=== PATIENT | male | born 1975 | race African-American/Black ===

== ENCOUNTER 2016-12-19 19:26 | Emergency (ER) | payer SELFPAY ==
[~2016-12-19] VITALS: Ht 182.9 cm; Wt 79.4 kg
--- NOTE | 2016-12-19 19:38 | ED Upper Extremity ---
General Chief Complaint: Foreign Body Stated Complaint: RT HAND 2ND FINGER LACERATION/GLASS IN WOUND Nursing Triage Note: C/O GLASS IN R 2ND FINGER SINCE YESTERDAY Nursing Sepsis Screen: No Definite Risk Source: patient Exam Limitations: no limitations History of Present Illness Time seen by provider: 19:37 Initial Comments To ER with suspicion of a piece of glass remaining in the laceration and the tip of his right pointer finger. This occurred yesterday while he was sweeping up glass off of the floor and felt something puncture his hand. His tetanus is up-to-date within the past 5 years. Onset: just prior to arrival Severity: moderate Pain/Injury Location: right 2nd finger Method of Injury: unknown Allergies and Home Medications Allergies Coded Allergies: No Known Drug Allergies (Unverified , 01/07/16) Constitutional: see HPI EENTM: see HPI Respiratory: no symptoms reported Cardiovascular: no symptoms reported Genitourinary: no symptoms reported Musculoskeletal: see HPI Skin: no symptoms reported Psychiatric/Neurological: No Symptoms Reported Past Xxvxccc-Vfesqo-Vpvnzc Hx Patient Social History Alcohol Use: Denies Use Recreational Drug Use: No Type Used: Cigarettes Recent Foreign Travel: No Contact w/Someone Who Travel: No Recent Infectious Disease Expo: No Recent Hopitalizations: No Physical Abuse: No Sexual Abuse: No Seasonal Allergies Seasonal Allergies: No Surgeries History of Surgeries: Yes (colonoscopy) Respiratory History of Respiratory Disorde: No Cardiovascular History of Cardiac Disorders: No Neurological History of Neurological Disord: No Reproductive System Hx Reproductive Disorders: No Gastrointestinal History of Gastrointestinal Di: Yes Gastrointestinal Disorders: Pancreatitis Musculoskeletal History of Musculoskeletal Dis: No Endocrine History of Endocrine Disorders: No Psychosocial History of Psychiatric Problem: No Suicide Risk Score: 0 Integumentary History of Skin or Integumenta: No Blood Transfusions History of Blood Disorders: No Adverse Reaction to a Blood Tr: No Physical Exam Vital Signs Vital Sign - Last 12Hours 12/19/16 19:32 Temp 98.7 Pulse 100 Resp 18 B/P (MAP) 100/66 Pulse Ox 99 Capillary Refill : Less Than 3 Seconds General Appearance: WD/WN, no apparent distress HEENT: PERRL/EOMI, normal ENT inspection Neck: non-tender, full range of motion Respiratory: no respiratory distress, no accessory muscle use Gastrointestinal: normal bowel sounds, non tender Shoulder: normal inspection, non-tender Elbow/Forearm: normal inspection, non-tender Wrist: Yes normal inspection, Yes non-tender Hand: Right, laceration (small 3 mm laceration to the very tip of the right pointer finger with minimal active oozing of blood on the finger is squeezed. No foreign bodies seen upon inspection so we will numb it up and look a bit closer.) Neurologic/Psychiatric: alert, normal mood/affect, oriented x 3 Skin: normal color, warm/dry Progress/Results/Core Measures Results/Orders My Orders Orders - SONYA WALLACE APRN Lidocaine 2% Injection 20 Ml (Xylocaine (12/19/16 19:45) Cephalexin Capsule (Keflex Capsule) (12/19/16 19:45) Hydrocodone/Apap 5/325 Tablet (Lortab 5 (12/19/16 19:45) Finger(S) (12/19/16 19:35) Vital Signs/I&O Vital Sign - Last 12Hours 12/19/16 19:32 Temp 98.7 Pulse 100 Resp 18 B/P (MAP) 100/66 Pulse Ox 99 Blood Pressure Mean: 77 Departure Communication (Admissions) Progress Notes I did anesthetize the tip of the pointer finger where there is the laceration. I then probed this with the parents sterile forceps and I am unable to feel any foreign bodies were visualized any. We will treat prophylactically with Keflex and hydrocodone and leave the wound open. Impression Impression: Primary Impression: fingertip wound Disposition: 01 HOME, SELF-CARE Condition: Stable Departure-Patient Inst. Decision time for Depature: 19:57 Referrals: NO,LOCAL PHYSICIAN (PCP/Family) Primary Care Physician Patient Instructions: NO INSTRUCTIONS GIVEN Add. Discharge Instructions: 1. Antibiotics as directed 2. Return to ER for any concerns 3. All discharge instructions reviewed with patient and/or family. Voiced understanding. Scripts Hydrocodone/Acetaminophen ([place] 5-325 Tablet) 1 Each Tablet 1 EACH PO Q4H Y for PAIN-SEVERE, #5 TAB Prov: SONYA WALLACE APRN 12/19/16 Cephalexin (Keflex) 500 Mg Capsule 500 MG PO TID, #15 CAP Prov: SONYA WALLACE APRN 12/19/16 SONYA WALLACE APRN Dec 19, 2016 19:38
[2016-12-19] MEDS ORDERED: HYDROcodone/APAP 5 MG/325 MG (LORTAB) TAB PO ONE (19:45)
[2016-12-19] MEDS ORDERED: CEPHALEXIN 250 MG (KEFLEX) CAP PO ONE (19:45)
[2016-12-19] MEDS ORDERED: LIDOCAINE 2% 20 ML (XYLOCAINE) VIAL INJ ONE (19:45)
[2016-12-19] MEDS ORDERED: CEPH-507 PO (20:01)
[2016-12-19] MEDS ORDERED: HYDR-757 PO (20:01)
[2016-12-19 20:05] VITALS: BP 100/66
--- NOTE | 2016-12-19 20:22 | Diagnostic Imaging Report ---
INDICATION: Injury. Pain. COMPARISON: None FINDINGS: 3 views of the right index finger/hand are obtained. No acute fracture, malalignment or osseous destructive process is seen. No radiopaque foreign bodies are demonstrated. IMPRESSION: No acute abnormality is demonstrated. Dictated by: Dictated on workstation # [id number]
== END 2016-12-19 20:05 | disposition home or self-care (01) ==
LOC: EDUNIT# 19:26 → ER 19:28
DX: S60.450A Superficial foreign body of right index finger, initial encounter; W18.02XA Striking against glass with subsequent fall, initial encounter
CPT/HCPCS: 73140; 99283

== ENCOUNTER 2019-10-14 00:33 | Emergency (ER) | payer SELFPAY ==
[~2019-10-14] VITALS: Ht 182 cm; Wt 84.8 kg
[~2019-10-14 00:33] MED LIST: CEPH-507 PO; HYDR-4226 PO
[2019-10-14] MEDS ORDERED: RX-NAPROXEN (NAPROSYN) 250 MG TAB PPK#4 PO STA (01:48)
[2019-10-14] MEDS ORDERED: NAPR500T8 PO (01:51)
[2019-10-14] MEDS ORDERED: AMOX-358 PO (01:51)
[2019-10-14] MEDS ORDERED: LIDO20SO23 MM (01:52)
--- NOTE | 2019-10-14 01:52 | ED EENT ---
History of Present Illness General Chief Complaint: Dental Problems/Pain Stated Complaint: MOUTH INFECTION Nursing Triage Note: Patient ambulatory to ER room 8 with complaint of pain to the roof of his mouth. Patient states he began with the pain yesterday and now has a lesion present on the roof of his mouth. Patient appears very sleepy and stumbling with walking. He states he is tired from taking Benadryl this evening. Patient is able to answer all questions appropriately but does fall asleep easily. Source: patient (VERY POOR HISTORIAN--SPEECH SLURRED AND NON-SENSICAL AT TIMES, APPEARS TO BE UNDER THE INFLUENCE OF SOME SUBSTANCE/S), old records (ALL PMH IS FROM OLD RECORD, PT IS UNABLE TO GIVE ANY RELIABLE INFORMATION AT THIS TIME) History of Present Illness Date Seen by Provider: Oct 14, 2019 Time Seen by Provider: 01:40 Initial Comments C/O PAIN TO MOUTH FOR THE PAST COUPLE OF DAYS DENIES ANY INJURY TO AREA, AND NO PRIOR SIMILAR PROBLEMS NO FEVER DOES NOT HAVE A DENTIST OR PCP PT STATES HE SAW "SOMEONE" A COUPLE OF DAYS AGO AND WAS GIVEN AN UNKNOWN ANTIBIOTIC--DENIES TO ME THAT HE WAS GIVEN ANY PAIN MEDICATION DENIES THAT HE HAS TAKEN ANY MEDICATION OR DRUGS OR ANY ALCOHOL TODAY, TO ME HAS GIVEN DIFFERENT INFORMATION TO NURSE--REPORTED KEFLEX AND HYDROCODONE RX'S RECENTLY. PT CANNOT STATE WHERE OR WHEN HE WAS SEEN OR BY WHOM, OR IF HE HAS A FOLLOW UP APPOINTMENT WITH ANYONE Allergies and Home Medications Allergies Coded Allergies: No Known Drug Allergies (Unverified , 01/07/16) Home Medications Amoxicillin/Potassium Clav 1 Each Tablet, 1 EACH PO BID Prescribed by: FALLON BAUGH on 10/14/19150 Cephalexin 500 Mg Capsule, 500 MG PO TID Prescribed by: SONYA WALLACE on 12/19/162000 Hydrocodone/Acetaminophen 1 Each Tablet, 1 EACH PO Q4H PRN for PAIN-SEVERE Prescribed by: SONYA WALLACE on 12/19/162000 Lidocaine HCl 15 Ml Solution, 1-2 ML MM [id number] Prescribed by: FALLON BAUGH on 10/14/19151 Naproxen 500 Mg Tablet.dr, 500 MG PO BID Prescribed by: FALLON BAUGH on 10/14/19150 Patient Home Medication List Home Medication List Reviewed: Yes Review of Systems Review of Systems Constitutional: No fever Mouth: see HPI Neurological: See HPI Past Igturkf-Fmhoqk-Qayamz Hx Past Med/Social Hx: Reviewed and Corrections made Patient Social History Alcohol Use: Regular Use Alcohol Beverage of Choice: Beer Recreational Drug Use: Yes Drug of Choice: marijuana Smoking Status: Current Everyday Smoker Type Used: Cigars 2nd Hand Smoke Exposure: Yes Recent Foreign Travel: No Contact w/Someone Who Travel: No Recent Infectious Disease Expo: No Recent Hopitalizations: No Physical Abuse: No Sexual Abuse: No Mistreated: No Fear: No Immunizations Up To Date PED Vaccines UTD: Yes Seasonal Allergies Seasonal Allergies: No Past Medical History Surgeries: Yes (colonoscopy, back surgery) Orthopedic Respiratory: No Cardiac: No Neurological: No Reproductive Disorders: No Gastrointestinal: Yes Pancreatitis Musculoskeletal: No Endocrine: No HEENT: No Cancer: No Psychosocial: Yes Depression Integumentary: No Blood Disorders: No Adverse Reaction/Blood Tranf: No Physical Exam Vital Signs Vital Signs - First Documented 10/14/19 00:40 Temp 36.2 Pulse 70 Resp 14 B/P (MAP) 117/88 (98) Pulse Ox 100 O2 Delivery Room Air Height, Weight, BMI Height: 6'0" Weight: 175lbs. oz. 79.675190fe; 25.00 BMI Method:Stated General Appearance: WD/WN, no apparent distress, other (SLEEPING VERY SOUNDLY, EASILY AWAKENS, BUT SPEECH IS SLURRED AND NON-SENSICAL AT TIMES, AND FALLS ASLEEP MID-SENTENCE. APPEARS TO BE UNDER THE INFLUENCE OF SOME SUBSTANCE/S. GAIT SOMEWHAT UNSTEADY ON ARRIVAL. ) Eyes: bilateral eye normal inspection Mouth/Throat: pharynx normal, other (ROOF OF MOUTH/HARD PALATE, BEHIND 2 FRONT TEETH WITH 1 CM TENDER, ERYTHEMATOUS, NODULE. NO POINTING. ADJACENT TEETH ARE GROSSLY NORMAL. ) Neck: non-tender, full range of motion, supple, normal inspection; No lymphadenopathy (R), No lymphadenopathy (L) Cardiovascular: regular rate, rhythm, no murmur Respiratory: normal breath sounds Neurologic/Psychiatric: no motor/sensory deficits, other (MENTATION ABOVE) Skin: normal color (PT IS BLACK) Progress/Results/Core Measures Results/Orders My Orders Orders - FALLON BAUGH DO Rx-Naproxen (Rx-Naprosyn) (10/14/19 01:48) Amoxicillin/Clavulanate Tablet (Augmenti (10/14/19 02:00) Lidocaine 2% Viscous 15 Ml (Xylocaine Vi (10/14/19 02:00) Medications Given in ED Current Medications Medications Dose Ordered Sig/Brooke Route Start Time Stop Time Status Last Admin Dose Admin Lidocaine HCl 5 ml ONCE ONCE MM 10/14/19 02:00 10/14/19 02:01 DC 10/14/19 01:58 5 ML Vital Signs/I&O 10/14/19 10/14/19 00:40 02:02 Temp 36.2 36.2 Pulse 70 65 Resp 14 14 B/P (MAP) 117/88 (98) 101/67 (98) Pulse Ox 100 100 O2 Delivery Room Air Room Air Blood Pressure Mean: 98 Departure Impression Primary Impression: Dental abscess Disposition: HOME, SELF-CARE Condition: Stable Departure-Patient Inst. Referrals: NO,LOCAL PHYSICIAN (PCP/Family) Primary Care Physician Patient Instructions: Tooth Abscess (DC) Add. Discharge Instructions: FREQUENT SALT WATER SWISHES FOLLOW UP WITH DENTIST THIS WEEK FOR FURTHER CARE All discharge instructions reviewed with patient and/or family. Voiced understanding. Scripts Lidocaine HCl (Lidocaine HCl Viscous) 15 Ml Solution 1-2 ML MM [id number], #120 ML Prov: FALLON BAUGH DO 10/14/19 Naproxen (Naproxen) 500 Mg Tablet.dr 500 MG PO BID, #20 TAB Prov: FALLON BAUGH DO 10/14/19 Amoxicillin/Potassium Clav (Augmentin 875-125 Tablet) 1 Each Tablet 1 EACH PO BID for 10 Days, #20 TAB Prov: FALLON BAUGH DO 10/14/19 FALLON BAUGH DO Oct 14, 2019 01:52
[2019-10-14] MEDS ORDERED: LIDOCAINE 2% VISCOUS 15 ML UDC MM ONE (02:00)
[2019-10-14] MEDS ORDERED: AUGMENTIN 875 MG TAB (AMOXICILLIN/CLAVULANATE) PO SCH (02:00)
[2019-10-14 02:02] VITALS: BP 101/67
== END 2019-10-14 02:11 | disposition home or self-care (01) ==
LOC: EDUNIT# 00:33 → ER 00:35
DX: K04.7 Periapical abscess without sinus (principal); F17.290 Nicotine dependence, other tobacco product, uncomplicated
CPT/HCPCS: 99283

== ENCOUNTER 2020-04-26 13:03 | Emergency (ER) | payer SELFPAY ==
[~2020-04-26] VITALS: Ht 182.8 cm; Wt 90.7 kg
[~2020-04-26 13:03] MED LIST changes: +AMOX-358 PO; +LIDO20SO23 MM; +NAPR500T8 PO
[2020-04-26 13:20] VITALS: BP 126/84
[2020-04-26] MEDS ORDERED: ORPHENADRINE 60 MG/2 ML (NORFLEX) AMP (ED ONLY) IM ONE (13:30)
[2020-04-26] MEDS ORDERED: KETOROLAC 60 MG/2 ML VIAL IM ONE (13:30)
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
[2020-04-26] MEDS ORDERED: METH-313 PO (13:51)
[2020-04-26] MEDS ORDERED: NAPR-1071 PO (13:51)
[2020-04-26] MEDS ORDERED: HYDROcodone/APAP 5 MG/325 MG (LORTAB) TAB PO ONE (14:45)
== END 2020-04-26 14:45 | disposition home or self-care (01) ==
LOC: EDUNIT# 13:03 → ER 13:05
DX: M54.6 Pain in thoracic spine (principal); Z77.22 Contact with and (suspected) exposure to environmental tobacco smoke (acute) (chronic)
CPT/HCPCS: 99284

== ENCOUNTER 2020-07-07 09:21 | Emergency (ER) | payer SELFPAY ==
[~2020-07-07] VITALS: Ht 182 cm; Wt 86.0 kg
[~2020-07-07 09:21] MED LIST changes: +METH-313 PO; +NAPR-1071 PO
--- NOTE | 2020-07-07 09:59 | ED GI ---
General Chief Complaint: Rect Problems Stated Complaint: RECTAL BLEEDING Nursing Triage Note: PT CO OF RECTAL BLEEDING THIS AM W NORMAL BM, PT STATES HAS SOME ABD CRAMPING, PT TEARFUL, STATES SEVERAL YEARS AGO HAD BLEEDING AND POLYPS REMOVED. STATES HAS NEVER HAD ANY PROBLEMS SINCE Sepsis Screen: No Definite Risk Source of Information: Patient Exam Limitations: No Limitations (KRISTINA BONNER MED STUDENT) History of Present Illness Date Seen by Provider: Jul 07, 2020 Time Seen by Provider: 09:30 Initial Comments Pt is a 44yo male who presents to the ED by private conveyance complaining of rectal bleeding. He states he had a normal BM this morning and noticed blood in the toilet after. He also reports some cramping pain in his lower abdomen that he rates as 6/10 in severity. He states that this happened 7-8 years ago and he ended up needing a colonoscopy and had polyps removed at that time. He has not had a colonoscopy since then. He denies any family history of cancer. He is very anxious about what could have caused this and states he has a baby on the way. Denies any rectal trauma. Also notes abdominal pressure with urination and states it feels like he has to strain to pee. Severity/Quality: Moderate, Cramping Location: RLQ, LLQ Radiation: No Radiation Activities at Onset: Other (Bowel movement) Modifying Factors: Improves With Defecating (KRISTINA BONNER,MED STUDENT) Allergies and Home Medications Allergies Coded Allergies: No Known Drug Allergies (Unverified , 01/07/16) Home Medications Amoxicillin/Potassium Clav 1 Each Tablet, 1 EACH PO BID Prescribed by: FALLON BAUGH on 10/14/19150 Cephalexin 500 Mg Capsule, 500 MG PO TID Prescribed by: SONYA WALLACE on 12/19/162000 Hydrocodone/Acetaminophen 1 Each Tablet, 1 EACH PO Q4H PRN for PAIN-SEVERE Prescribed by: SONYA WALLACE on 12/19/162000 Lidocaine HCl 15 Ml Solution, 1-2 ML MM [id number] Prescribed by: FALLON BAUGH on 10/14/19 015 Methocarbamol 750 Mg Tablet, 750 MG PO Q4H PRN for PAIN-MODERATE (5-7) Prescribed by: SONYA WALLACE on 04/26/20 1351 Naproxen 500 Mg Tablet.dr, 500 MG PO BID Prescribed by: FALLON BAUGH on 10/14/19 0151 Naproxen 500 Mg Tablet, 500 MG PO BID PRN for PAIN-MILD (1-4) Prescribed by: SONYA WALLACE on 04/26/20 1351 Patient Home Medication List Home Medication List Reviewed: Yes (LAYLA STEVENSON MD) Review of Systems Review of Systems Constitutional: no symptoms reported EENTM: No Symptoms Reported Respiratory: No Symptoms Reported Cardiovascular: No Symptoms Reported Gastrointestinal: Abdominal Pain; Denies Constipated, Denies Diarrhea; Rectal Bleeding Genitourinary: Other (straining) Musculoskeletal: no symptoms reported Skin: no symptoms reported Psychiatric/Neurological: Anxiety Endocrine: No Symptoms Reported Hematologic/Lymphatic: No Symptoms Reported (KRISTINA BONNER MED STUDENT) Past Hvmftgg-Tennbs-Sscxyd Hx Patient Social History Alcohol Use: Rarely Uses Number of Drinks Today: 0 Alcohol Beverage of Choice: Beer Drug of Choice: marijuana Smoking Status: Current Everyday Smoker Type Used: Cigars 2nd Hand Smoke Exposure: Yes Recent Infectious Disease Expo: No Recent Hopitalizations: No (KRISTINA BONNER MED STUDENT) Immunizations Up To Date Tetanus Booster (TDap): Unknown PED Vaccines UTD: Yes (KRISTINA BONNER MED STUDENT) Seasonal Allergies Seasonal Allergies: No (KRISTINA BONNER MED STUDENT) Past Medical History Surgeries: Yes (colonoscopy, back surgery) Orthopedic Respiratory: No Cardiac: No Neurological: No Reproductive Disorders: No Gastrointestinal: Yes Pancreatitis Musculoskeletal: No Endocrine: No HEENT: No Cancer: No Psychosocial: Yes Depression Integumentary: No Blood Disorders: No Adverse Reaction/Blood Tranf: No (KRISTINA BONNER MED STUDENT) Gastrointestinal Bleed, Polyps (LAYLA STEVENSON MD) Physical Exam Vital Signs Vital Signs - First Documented 07/07/20 09:25 Temp 36.6 Pulse 98 Resp 18 B/P (MAP) 126/103 (111) Pulse Ox 100 (LAYLA STEVENSON MD) Vital Signs Capillary Refill : Less Than 3 Seconds (KRISTINA BONNER MED STUDENT) Height/Weight/BMI Height: 6'0" Weight: 175lbs. oz. 79.501922se; 25.00 BMI Method:Stated General Appearance: WD/WN, other (anxious) HEENT: PERRL/EOMI Neck: full range of motion, supple Respiratory: chest non-tender, lungs clear, no respiratory distress, no accessory muscle use Cardiovascular: no murmur, tachycardia Peripheral Pulses: 2+ Radial Pulses (R), 2+ Radial Pulses (L) Gastrointestinal: normal bowel sounds, soft, tenderness (minimal tenderness in bilateral lower abdomen) Extremities: normal range of motion, non-tender, no pedal edema, no calf tenderness Neurologic/Psychiatric: no motor/sensory deficits, alert, oriented x 3, other (anxious) Skin: normal color, warm/dry (KRISTINA BONNER,MED STUDENT) Progress/Results/Core Measures Results/Orders Lab Results Laboratory Tests Test 07/07/20 10:25 07/07/20 10:40 Range/Units White Blood Count 5.2 4.3-11.0 10^3/uL Red Blood Count 4.53 4.30-5.52 10^6/uL Hemoglobin 14.2 13.3-17.7 g/dL Hematocrit 43 40-54 % Mean Corpuscular Volume 96 80-99 fL Mean Corpuscular Hemoglobin 31 25-34 pg Mean Corpuscular Hemoglobin Concent 33 32-36 g/dL Red Cell Distribution Width 12.3 10.0-14.5 % Platelet Count 244 130-400 10^3/uL Mean Platelet Volume 9.6 9.0-12.2 fL Immature Granulocyte % (Auto) 0 % Neutrophils (%) (Auto) 52 42-75 % Lymphocytes (%) (Auto) 34 12-44 % Monocytes (%) (Auto) 7 0-12 % Eosinophils (%) (Auto) 5 0-10 % Basophils (%) (Auto) 1 0-10 % Neutrophils # (Auto) 2.7 1.8-7.8 10^3/uL Lymphocytes # (Auto) 1.8 1.0-4.0 10^3/uL Monocytes # (Auto) 0.4 0.0-1.0 10^3/uL Eosinophils # (Auto) 0.3 0.0-0.3 10^3/uL Basophils # (Auto) 0.1 0.0-0.1 10^3/uL Immature Granulocyte # (Auto) 0.0 0.0-0.1 10^3/uL Prothrombin Time 12.4 12.2-14.7 SEC INR Comment 0.9 0.8-1.4 Activated Partial Thromboplast Time 31 24-35 SEC Sodium Level 139 135-145 MMOL/L Potassium Level 4.2 3.6-5.0 MMOL/L Chloride Level 103 98-107 MMOL/L Carbon Dioxide Level 28 21-32 MMOL/L Anion Gap 8 5-14 MMOL/L Blood Urea Nitrogen 8 7-18 MG/DL Creatinine 0.83 0.60-1.30 MG/DL Estimat Glomerular Filtration Rate > 60 BUN/Creatinine Ratio 10 Glucose Level 86 70-105 MG/DL Calcium Level 9.0 8.5-10.1 MG/DL Corrected Calcium 9.0 8.5-10.1 MG/DL Total Bilirubin 0.2 0.1-1.0 MG/DL Aspartate Amino Transf (AST/SGOT) 18 5-34 U/L Alanine Aminotransferase (ALT/SGPT) 18 0-55 U/L Alkaline Phosphatase 68 40-136 U/L Total Protein 7.3 6.4-8.2 GM/DL Albumin 4.0 3.2-4.5 GM/DL Urine Color YELLOW Urine Clarity CLEAR Urine pH 6.5 5-9 Urine Specific [place] 1.015 L 1.016-1.022 Urine Protein NEGATIVE NEGATIVE Urine Glucose (UA) NEGATIVE NEGATIVE Urine Ketones NEGATIVE NEGATIVE Urine Nitrite NEGATIVE NEGATIVE Urine Bilirubin NEGATIVE NEGATIVE Urine Urobilinogen 0.2 < = 1.0 MG/DL Urine Leukocyte Esterase NEGATIVE NEGATIVE Urine RBC (Auto) NEGATIVE NEGATIVE Urine RBC NONE /HPF Urine WBC NONE /HPF Urine Squamous Epithelial Cells 0-2 /HPF Urine Crystals NONE /LPF Urine Bacteria NEGATIVE /HPF Urine Casts NONE /LPF Urine Mucus NEGATIVE /LPF Urine Culture Indicated NO (LAYLA STEVENSON MD) My Orders Orders - LAYLA STEVENSON MD Cbc With Automated Diff (07/07/20 09:38) Comprehensive Metabolic Panel (07/07/20 09:38) Protime With Inr (07/07/20 09:38) Partial Thromboplastin Time (07/07/20 09:38) Ed Iv/Invasive Line Start (07/07/20 09:38) Fecal Occult Bedside (07/07/20 09:38) Ua Culture If Indicated (07/07/20 10:39) Iohexol Injection (Omnipaque 350 Mg/Ml 1 (07/07/20 11:30) Received Contrast (Hold Metformin- Contr (07/07/20 11:30) Ns (Ivpb) (Sodium Chloride 0.9% Ivpb Bag (07/07/20 11:30) (LAYLA STEVENSON MD) Vital Signs/I&O 07/07/20 07/07/20 09:25 11:28 Temp 36.6 Pulse 98 92 Resp 18 18 B/P (MAP) 126/103 (111) 122/88 Pulse Ox 100 100 (LAYLA STEVENSON MD) Blood Pressure Mean: 111 Progress Progress Note : Progress Note Patient was seen and examined by me. Labs were reviewed and were unremarkable. Rectal exam was performed. Patient experienced pelvic pain with the rectal exam. Hemoccult was positive. I discussed the situation with Dr. Beaulieu who advised CT scan and surgical follow-up for probable endoscopy. Plan was discussed with the patient. He declined the CT scan. I explained to him the importance of CT scan to rule out serious pathology prior to endoscopy. I explained that the surgeon on-call would desire the CT prior to performing any endoscopy. Despite this coverage they should call the the patient insists on leaving without further work-up and pursuit of outpatient consultation with a surgeon. He seems very stressed and is tearful. I contacted Dr. Beaulieu and updated him on the situation. (LAYLA STEVENSON MD) Departure Impression Primary Impression: Rectal bleeding Additional Impression: Pelvic pain Disposition: 01 HOME, SELF-CARE Condition: Stable Departure-Patient Inst. Decision time for Depature: 11:25 (LAYLA STEVENSON MD) Referrals: IMANI BEAULIEU DO NO,LOCAL PHYSICIAN (PCP) Primary Care Physician Patient Instructions: Bloody Stools, Adult (DC), Severe Abdominal Pain Add. Discharge Instructions: It is critical that you follow-up with Dr. Beaulieu or the surgeon of your choice as soon as possible. Please call today to make an appointment. Return to the emergency room if you have any worsening or new symptoms or if you change your mind about obtaining a CT scan. You may take Tylenol (acetaminophen) up to 1000 mg every 6 hours as needed for pain. It is not advised to take NSAID medications such as ibuprofen, aspirin, naproxen, etc. Call with questions or concerns. All discharge instructions reviewed with patient and/or family. Voiced unders tanding. Medical Student Attestation and Attending Note: I have personally interviewed and examined this patient along with Kristina Bonner, MS 4. I have reviewed student documentation including history, physical, and assessments. I agree with the documentation except where otherwise noted. Exam: General: Alert, oriented, distressed/tearful, well developed HEENT: Normocephalic and atraumatic Heart: Regular rate and rhythm without murmur Lungs: Clear to auscultation bilaterally with normal effort Abdomen: Soft, mild tenderness in the pelvic region, nondistended, normal bowel sounds Rectal: Some fecal debris around the anus. Anus appears normal. No masses identified. Hemoccult was positive. No archana bleeding noted. Patient reported pain in the pelvic region with digital exam. Neuropsych: Alert, oriented, no focal deficits, anxious, tearful Skin: Warm and dry without rashes (LAYLA STEVENSON MD) Copy Copies To 1: IMANI BEAULIEU HEATHER,MED STUDENT Jul 07, 2020 09:59 LAYLA STEVENSON MD Jul 07, 2020 11:26
[2020-07-07 10:39] LABS: BASOPHILS # (AUTO) 0.1 10^3/uL (0.0-0.1); BASOPHILS % (AUTO) 1 % (0-10); EOSINOPHILS # (AUTO) 0.3 10^3/uL (0.0-0.3); EOSINOPHILS % (AUTO) 5 % (0-10); HEMATOCRIT 43 % (40-54); HEMOGLOBIN 14.2 g/dL (13.3-17.7); LYMPHOCYTES # (AUTO) 1.8 10^3/uL (1.0-4.0); LYMPHOCYTES % (AUTO) 34 % (12-44); MEAN CORPUSCULAR HEMOGLOBIN 31 pg (25-34); MEAN CORPUSCULAR HGB CONC 33 g/dL (32-36); MEAN CORPUSCULAR VOLUME 96 fL (80-99); MEAN PLATELET VOLUME 9.6 fL (9.0-12.2); MONOCYTES # (AUTO) 0.4 10^3/uL (0.0-1.0); MONOCYTES % (AUTO) 7 % (0-12); NEUTROPHILS # (AUTO) 2.7 10^3/uL (1.8-7.8); NEUTROPHILS % (AUTO) 52 % (42-75); PLATELET COUNT 244 10^3/uL (130-400); WHITE BLOOD COUNT 5.2 10^3/uL (4.3-11.0)
[2020-07-07 10:47] LABS: BILIRUBIN,URINE NEGATIVE (NEGATIVE); CLARITY,URINE CLEAR; COLOR,URINE YELLOW; GLUCOSE, URINE (UA) NEGATIVE (NEGATIVE); KETONES,URINE NEGATIVE (NEGATIVE); LEUKOCYTE ESTERASE ,URINE NEGATIVE (NEGATIVE); NITRITE,URINE NEGATIVE (NEGATIVE); PH,URINE 6.5 (5-9); PROTEIN,URINE NEGATIVE (NEGATIVE)
[2020-07-07 10:53] LABS: CHLORIDE 103 MMOL/L (98-107); INR 0.9 (0.8-1.4); POTASSIUM 4.2 MMOL/L (3.6-5.0); PROTHROMBIN TIME PATIENT 12.4 SEC (12.2-14.7); SODIUM 139 MMOL/L (135-145)
[2020-07-07 10:55] LABS: BACTERIA,URINE NEGATIVE /HPF; SQUAMOUS EPITHELIAL CELL,UR 0-2 /HPF
[2020-07-07 10:56] LABS: GLUCOSE 86 MG/DL (70-105); TOTAL PROTEIN 7.3 GM/DL (6.4-8.2)
[2020-07-07 10:57] LABS: BILIRUBIN,TOTAL 0.2 MG/DL (0.1-1.0); CARBON DIOXIDE 28 MMOL/L (21-32)
[2020-07-07 10:59] LABS: ALKALINE PHOSPHATASE 68 U/L (40-136); CREATININE SERUM 0.83 MG/DL (0.60-1.30); GFR ESTIMATED > 60
[2020-07-07 11:00] LABS: BUN/CREATININE RATIO 10
[2020-07-07 11:02] LABS: ALANINE AMINOTRANSFERASE 18 U/L (0-55)
[2020-07-07 11:28] VITALS: BP 122/88
[2020-07-07] MEDS ORDERED: IOHEXOL 350 MG/ML 100 ML (OMNIPAQUE 350) VIAL IV ONE (11:30)
[2020-07-07] MEDS ORDERED: HOLD METFORMIN - RECEIVED CONTRAST 20 ML VIAL IV SCH (11:30)
[2020-07-07] MEDS ORDERED: NS 100 ML (IVPB) BAG IV ONE (11:30)
== END 2020-07-07 11:30 | disposition home or self-care (01) ==
LOC: EDUNIT# 09:21 → ER 09:23
DX: K62.5 Hemorrhage of anus and rectum (principal); R10.2 Pelvic and perineal pain; F17.290 Nicotine dependence, other tobacco product, uncomplicated
CPT/HCPCS: 36415; 80053; 81000; 82274; 85025; 85610; 85730

== ENCOUNTER 2020-10-25 06:55 | Emergency (ER) | payer SELFPAY ==
[~2020-10-25] VITALS: Ht 182.9 cm; Wt 88.5 kg
[2020-10-25 07:03] VITALS: BP 132/106
[2020-10-25] MEDS ORDERED: LIDOCAINE 1% INJ 20 ML 20 ML VIAL INJ ONE (07:30)
[2020-10-25] MEDS ORDERED: SULF1TAB38 PO (07:59)
--- NOTE | 2020-10-25 07:59 | ED Integumentary General ---
General Chief Complaint: Skin/Wound Problems Stated Complaint: L ARMIT INGROWN HAIR Nursing Triage Note: PT AMB TO RM 6 W C/O WHAT HE BELIEVES IS AN INGROWN HAIR SX LAST SUNDAY. PT HAS A RAISED AREA OF CONCERN ON HIS LEFT ARMPIT. PT REPORTS AREA IS PAINFUL TO TOUCH AND HAS BEEN GETTING BIGGER. Source: patient Exam Limitations: no limitations (LAYLA STEVENSON MD) History of Present Illness Date Seen by Provider: Oct 25, 2020 Time Seen by Provider: 07:30 Initial Comments Bismark Sage is a 44yo M with PMH of substance abuse who presents with CC of ingrown hair. He states that over the past week he has had an increasingly tender area of non-draining fluctuance in the L axila, which has caused him to take 3 days off from work. He describes tenderness with arm movement, but has normal ROM. He has never had this happen before, and denies fever, chills, or n/v/d. Timing/Duration: week Severity: moderate Location: torso (L axilla ) Possible Cause: no cause identified Modifying Factors: worse with other (movement) Associated Symptoms: denies symptoms (POPPY AMEZCUA,MED STUDENT) Allergies and Home Medications Allergies Coded Allergies: No Known Drug Allergies (Unverified , 01/07/16) Home Medications Amoxicillin/Potassium Clav 1 Each Tablet, 1 EACH PO BID Prescribed by: FALLON BAUGH on 10/14/19150 Cephalexin 500 Mg Capsule, 500 MG PO TID Prescribed by: SONYA WALLACE on 12/19/162000 Hydrocodone/Acetaminophen 1 Each Tablet, 1 EACH PO Q4H PRN for PAIN-SEVERE Prescribed by: SONYA WALLACE on 12/19/162000 Lidocaine HCl 15 Ml Solution, 1-2 ML MM [id number] Prescribed by: FALLON BAUGH on 10/14/19 015 Methocarbamol 750 Mg Tablet, 750 MG PO Q4H PRN for PAIN-MODERATE (5-7) Prescribed by: SONYA WALLACE on 04/26/201350 Naproxen 500 Mg Tablet.dr, 500 MG PO BID Prescribed by: FALLON BAUGH on 10/14/19150 Naproxen 500 Mg Tablet, 500 MG PO BID PRN for PAIN-MILD (1-4) Prescribed by: SONYA WALLACE on 2/8/21 1351 Sulfamethoxazole/Trimethoprim 1 Each Tablet, 1 EACH PO BID Prescribed by: LAYLA MEDRANO on 10/25/20 6702 Patient Home Medication List Home Medication List Reviewed: Yes (LAYLA STEVENSON MD) Review of Systems Review of Systems Constitutional: No chills, No fever EENTM: no symptoms reported Respiratory: no symptoms reported Cardiovascular: no symptoms reported Gastrointestinal: no symptoms reported Genitourinary: no symptoms reported Musculoskeletal: no symptoms reported Skin: see HPI Psychiatric/Neurological: No Symptoms Reported Endocrine: No Symptoms Reported Hematologic/Lymphatic: No Symptoms Reported (POPPY AMEZCUA,MED STUDENT) Past Yfzydgp-Fhaquz-Ahvjpp Hx Patient Social History Tobacco Use?: Yes Tobacco type used: Cigarettes Smoking Status: Current Someday Smoker Substance use?: No Additional substance use comme: FORMER METH USER Alcohol Use?: No Pt feels they are or have been: No (LAYLA STEVENSON MD) Immunizations Up To Date Tetanus Booster (TDap): Unknown PED Vaccines UTD: Yes (LAYLA STEVENSON MD) Seasonal Allergies Seasonal Allergies: No (LAYLA STEVENSON MD) Past Medical History Surgeries: Yes (colonoscopy, back surgery) Orthopedic Respiratory: No Cardiac: No Neurological: No Reproductive Disorders: No Gastrointestinal: Yes Gastrointestinal Bleed, Polyps Musculoskeletal: No Endocrine: No HEENT: No Cancer: No Psychosocial: Yes Depression Integumentary: No Blood Disorders: No Adverse Reaction/Blood Tranf: No (LAYLA STEVENSON MD) Physical Exam Vital Signs Vital Signs - First Documented 10/25/20 07:03 Temp 37.0 Pulse 104 Resp 18 B/P (MAP) 132/106 (115) Pulse Ox 99 O2 Delivery Room Air (POPPY AMEZCUA,MED STUDENT) Vital Signs Capillary Refill : Less Than 3 Seconds (LAYLA STEVENSON MD) General Appearance: WD/WN, no apparent distress HEENT: PERRL/EOMI, normal ENT inspection Neck: non-tender, full range of motion Cardiovascular: normal peripheral pulses, tachycardia Respiratory: normal breath sounds, no respiratory distress, no accessory muscle use Gastrointestinal: normal bowel sounds, non tender, soft; No distended, No hernia Back: normal inspection Extremities: normal range of motion, no calf tenderness Neurologic/Psychiatric: alert, normal mood/affect, oriented x 3 Skin: normal color, warm/dry Skin Problem Location: upper extremities (3cm area of erythematous fluctuance under L axilla) Skin Problem Character: abscess, erythema Lymphatic: no adenopathy (POPPY AMEZCUA,MED STUDENT) Procedures/Interventions I&D : Site: Left axilla Blade Size: 11 I & D Procedure: betadine prep, gauze wick placed Progress Site of incision was initially cleaned with isopropyl alcohol and 0.5mL of lidocaine was injected. Site was then cleaned further with chlorhexidine and a 1cm incision was made. Copious purulent material was expressed from the wound and culture was collected. A 30mL mixture of 5mL lidocaine and 25mL normal saline was used to irrigate the abscess with continued expression. A small amount of clumpy sebaceous material was expressed near the end of the procedure. A 1/4in wick was used to maintain patency of the incision; a 4x4 gauze was placed over the wound to end the procedure. (POPPY AMEZCUA,MED STUDENT) Progress/Results/Core Measures Results/Orders Vital Signs/I&O 10/25/20 07:03 Temp 37.0 Pulse 104 Resp 18 B/P (MAP) 132/106 (115) Pulse Ox 99 O2 Delivery Room Air (POPPY AMEZCUA,MED STUDENT) Blood Pressure Mean: 115 Departure Impression Primary Impression: Axillary abscess Additional Impression: Encounter for incision and drainage procedure Disposition: 01 HOME, SELF-CARE Condition: Improved Departure-Patient Inst. Decision time for Depature: 07:55 (LAYLA STEVENSON MD) Referrals: NO,LOCAL PHYSICIAN (PCP/Family) Primary Care Physician Patient Instructions: Abscess Incision and Drainage ED, SEBACEOUS CYST Add. Discharge Instructions: You may take ibuprofen up to 600 mg every 6 hours and/or Tylenol (acetaminophen) up to 1000 mg every 6 hours as needed for pain. Leave the packing wick in for 12 to 24 hours. This will help ensure the incision hole stays open for continued draining. When you remove the packing, you may gently express the area to alleviate more pus that may have developed. After removing the packing, use warm moist soaks in the bathtub with a few squirts of chlorhexidine soap or use warm moist cloth compresses. Continue this 3 or 4 times a day until you are sure the abscess is improving and there is no more drainage coming from the wound. Complete your antibiotics as prescribed. Do not skip any doses and complete the entire course of antibiotics. Return to care if you have worsening symptoms including fevers greater than 100 degrees. This abscess may have been caused by a sebaceous cyst. If you do have a persistent or returning knot under the skin in this area, consider following up with a general surgeon or your primary care provider to have the cyst excised. Untreated cyst may present a risk for recurrent infection and abscesses. You may return to the emergency room at any time during the healing of this abscess for a no charge wound check. It would be good to follow-up with your primary care provider in 3 or 4 days for repeat examination and review of wound culture results. At that time you may also discuss potential for referral to a surgeon if you seem to have a persistent sebaceous cyst after this abscess completely heals. Call with any questions or concerns. All discharge instructions reviewed with patient and/or family. Voiced understanding. Scripts Sulfamethoxazole/Trimethoprim (Bactrim Ds Tablet) 1 Each Tablet 1 EACH PO BID, #14 TAB Prov: LAYLA STEVENSON MD 10/25/20 Medical Student Attestation and Attending Note: I have personally interviewed and examined this patient along with DEBBIE Ferguson. I have reviewed student documentation including history, physical, and assessments. I agree with the documentation except where otherwise noted. I assisted with the decision making in the care of this patient and assisted with the incision and drainage performed by MS 4 under my direct supervision. Exam: General: Alert, oriented, no acute distress, well developed HEENT: Normocephalic and atraumatic Lungs: Normal breath sounds, normal effort Neuropsych: Alert, oriented Skin: Large abscess at least 3 cm in diameter in the left axilla with fluctuance near the skin surface. Mild localized erythema surrounding the abscess. Region is very tender to palpation. No active drainage. (LAYLA STEVENSON MD) LAYLA STEVENSON MD Oct 25, 2020 07:59 POPPY AMEZCUA,MED STUDENT Oct 25, 2020 08:13
== END 2020-10-25 08:19 | disposition home or self-care (01) ==
LOC: EDUNIT# 06:55 → ER 06:58
DX: L02.412 Cutaneous abscess of left axilla (principal); F17.210 Nicotine dependence, cigarettes, uncomplicated
CPT/HCPCS: 10061; 87070; 87077; 87186; 87205

== ENCOUNTER 2022-08-20 14:58 | Emergency (ER) | payer SELFPAY ==
[~2022-08-20] VITALS: Ht 182 cm; Wt 91.0 kg
[~2022-08-20 14:58] MED LIST changes: +LIDO15SO3 MM; -LIDO20SO23 MM; +SULF1TAB38 PO
[2022-08-20 15:58] LABS: BASOPHILS # (AUTO) 0.1 10^3/uL (0.0-0.1); BASOPHILS % (AUTO) 1 % (0-10); EOSINOPHILS # (AUTO) 0.3 10^3/uL (0.0-0.3); EOSINOPHILS % (AUTO) 4 % (0-10); HEMATOCRIT 45 % (40-54); HEMOGLOBIN 15.1 g/dL (13.3-17.7); LYMPHOCYTES # (AUTO) 1.7 10^3/uL (1.0-4.0); LYMPHOCYTES % (AUTO) 25 % (12-44); MEAN CORPUSCULAR HEMOGLOBIN 31 pg (25-34); MEAN CORPUSCULAR HGB CONC 34 g/dL (32-36); MEAN CORPUSCULAR VOLUME 92 fL (80-99); MEAN PLATELET VOLUME 9.5 fL (9.0-12.2); MONOCYTES # (AUTO) 0.4 10^3/uL (0.0-1.0); MONOCYTES % (AUTO) 5 % (0-12); NEUTROPHILS # (AUTO) 4.6 10^3/uL (1.8-7.8); NEUTROPHILS % (AUTO) 65 % (42-75); PLATELET COUNT 314 10^3/uL (130-400); WHITE BLOOD COUNT 7.1 10^3/uL (4.3-11.0)
--- NOTE | 2022-08-20 16:01 | ED Chest Pain ---
General Chief Complaint: Chest Pain Stated Complaint: HEART ATTACK Nursing Triage Note: PT TO RM 6 PER W/C PT CO OF CHEST PAIN AND L SHOULDER AND ARM PAIN. STARTED AT APPROX 1130 TODAY. PT HAD CALLED EMS AND REFUSED TRANSPORT Source: patient Exam Limitations: no limitations History of Present Illness Date Seen by Provider: Aug 20, 2022 Time Seen by Provider: 15:11 Initial Comments This 46-year-old man presents to the emergency room by private vehicle after having a syncopal episode this morning around 1100. He reports walking through a yard when he suddenly felt a tightness in his chest. He then had a syncopal episode and woke up on the ground. He fell during the episode and hit his head. EMS was activated on scene but he declined transport. He has been having significant pain in his left shoulder since the incident. He denies any history of heart or lung problems. He recently relapsed from methamphetamine and marijuana use. There was some slurring of his speech at the time of the incident. Allergies and Home Medications Allergies Coded Allergies: No Known Drug Allergies (Unverified , 01/07/16) Patient Home Medication List Home Medication List Reviewed: Yes Amoxicillin/Potassium Clav (Augmentin 875-125 Tablet) 1 Each Tablet, 1 EACH PO BID Prescribed by: FALLON BAUGH on 10/14/19150 Cephalexin (Keflex) 500 Mg Capsule, 500 MG PO TID Prescribed by: SONYA WALLACE on 12/19/162000 Hydrocodone/Acetaminophen (Hydrocodone/Acetaminophen 5 MG/325 MG TAB) 1 Each Tablet, 1 EACH PO Q4H PRN for PAIN-SEVERE Prescribed by: SONYA WALLACE on 12/19/162000 Lidocaine HCl (Lidocaine HCl Viscous) 15 Ml Solution, 1-2 ML MM [id number] Prescribed by: FALLON BAUGH on 10/14/19151 Methocarbamol (Robaxin-750) 750 Mg Tablet, 750 MG PO Q4H PRN for PAIN-MODERATE (5-7) Prescribed by: SONYA WALLACE on 04/26/201350 Naproxen (Naproxen) 500 Mg Tablet.dr, 500 MG PO BID Prescribed by: FALLON BAUGH on 10/14/19150 Naproxen (Naprosyn) 500 Mg Tablet, 500 MG PO BID PRN for PAIN-MILD (1-4) Prescribed by: SONYA WALLCAE on 04/26/20 1351 Sulfamethoxazole/Trimethoprim (Bactrim Ds Tablet) 1 Each Tablet, 1 EACH PO BID Prescribed by: LAYLA MEDRANO on 10/25/20 0759 Review of Systems Review of Systems Constitutional: no symptoms reported EENTM: No Symptoms Reported Respiratory: No Symptoms Reported Cardiovascular: No Symptoms Reported Gastrointestinal: No Symptoms Reported Genitourinary: No Symptoms Reported Musculoskeletal: see HPI Skin: no symptoms reported Psychiatric/Neurological: See HPI Endocrine: No Symptoms Reported Past Nzvwmwt-Foquai-Pexqlx Hx Patient Social History Tobacco Use?: Yes Tobacco type used: Cigars Smoking Status: Current Everyday Smoker Substance use?: Yes Substance type: Methamphetamine, Marijuana Alcohol Use?: Yes Alcohol Frequency: Rarely Pt feels they are or have been: No Immunizations Up To Date Tetanus Booster (TDap): Unknown PED Vaccines UTD: Yes Seasonal Allergies Seasonal Allergies: No Past Medical History Surgery/Hospitalization HX: COLONOSCOPY, Surgeries: Yes (colonoscopy, back surgery) Orthopedic Respiratory: No Cardiac: No Neurological: No Reproductive Disorders: No Gastrointestinal: Yes Gastrointestinal Bleed, Polyps Musculoskeletal: Yes Chronic Back Pain Endocrine: No HEENT: No Cancer: No Psychosocial: Yes Depression Integumentary: No Blood Disorders: No Adverse Reaction/Blood Tranf: No Physical Exam Vital Signs Vital Signs - First Documented 08/20/22 15:00 Temp 37.0 Pulse 114 Resp 23 B/P (MAP) 108/78 (88) Pulse Ox 98 O2 Delivery Room Air Capillary Refill : Less Than 3 Seconds Height, Weight, BMI Height: 6'0" Weight: 175lbs. oz. 79.501483cx; 27.00 BMI Method:Stated General Appearance: WD/WN, Mild Distress (shoulder pain) HEENT: PERRL/EOMI, Other (facial contusions) Neck: Normal Inspection Respiratory: Lungs Clear, Normal Breath Sounds, No Accessory Muscle Use, No Respiratory Distress, Other (anterior chest wall TTP) Cardiovascular: No Edema, Systolic Murmur, Tachycardia Gastrointestinal: Non Tender, Soft; No Distended Extremity: Normal Inspection, No Pedal Edema Neurologic/Psychiatric: Alert, Oriented x3, No Motor/Sensory Deficits, Normal Mood/Affect Skin: Normal Color, Warm/Dry Progress/Results/Core Measures Results/Orders Lab Results Laboratory Tests Test 08/20/22 15:51 08/20/22 16:42 Range/Units White Blood Count 7.1 4.3-11.0 10^3/uL Red Blood Count 4.87 4.30-5.52 10^6/uL Hemoglobin 15.1 13.3-17.7 g/dL Hematocrit 45 40-54 % Mean Corpuscular Volume 92 80-99 fL Mean Corpuscular Hemoglobin 31 25-34 pg Mean Corpuscular Hemoglobin Concent 34 32-36 g/dL Red Cell Distribution Width 12.3 10.0-14.5 % Platelet Count 314 130-400 10^3/uL Mean Platelet Volume 9.5 9.0-12.2 fL Immature Granulocyte % (Auto) 0 % Neutrophils (%) (Auto) 65 42-75 % Lymphocytes (%) (Auto) 25 12-44 % Monocytes (%) (Auto) 5 0-12 % Eosinophils (%) (Auto) 4 0-10 % Basophils (%) (Auto) 1 0-10 % Neutrophils # (Auto) 4.6 1.8-7.8 10^3/uL Lymphocytes # (Auto) 1.7 1.0-4.0 10^3/uL Monocytes # (Auto) 0.4 0.0-1.0 10^3/uL Eosinophils # (Auto) 0.3 0.0-0.3 10^3/uL Basophils # (Auto) 0.1 0.0-0.1 10^3/uL Immature Granulocyte # (Auto) 0.0 0.0-0.1 10^3/uL Prothrombin Time 13.4 12.2-14.7 SEC INR Comment 1.0 0.8-1.4 Activated Partial Thromboplast Time 34 24-35 SEC D-Dimer 1.63 H 0.00-0.49 UG/ML Sodium Level 141 135-145 MMOL/L Potassium Level 4.2 3.6-5.0 MMOL/L Chloride Level 107 98-107 MMOL/L Carbon Dioxide Level 24 21-32 MMOL/L Anion Gap 10 5-14 MMOL/L Blood Urea Nitrogen 13 7-18 MG/DL Creatinine 1.06 0.60-1.30 MG/DL Estimat Glomerular Filtration Rate 88 BUN/Creatinine Ratio 12 Glucose Level 85 70-105 MG/DL Calcium Level 9.7 8.5-10.1 MG/DL Corrected Calcium 9.5 8.5-10.1 MG/DL Magnesium Level 2.2 1.6-2.4 MG/DL Total Bilirubin 0.3 0.1-1.0 MG/DL Aspartate Amino Transf (AST/SGOT) 24 5-34 U/L Alanine Aminotransferase (ALT/SGPT) 24 0-55 U/L Alkaline Phosphatase 89 40-136 U/L Myoglobin 51.3 10.0-92.0 NG/ML Troponin I < 0.028 <0.028 NG/ML Total Protein 8.0 6.4-8.2 GM/DL Albumin 4.2 3.2-4.5 GM/DL Salicylates Level < 5.0 L 5.0-20.0 MG/DL Acetaminophen Level < 10 L 10-30 UG/ML Serum Alcohol < 10 <10 MG/DL Urine Opiates Screen NEGATIVE NEGATIVE Urine Oxycodone Screen NEGATIVE NEGATIVE Urine Methadone Screen NEGATIVE NEGATIVE Urine Propoxyphene Screen NEGATIVE NEGATIVE Urine Barbiturates Screen NEGATIVE NEGATIVE Ur Tricyclic Antidepressants Screen NEGATIVE NEGATIVE Urine Phencyclidine Screen NEGATIVE NEGATIVE Urine Amphetamines Screen POSITIVE H NEGATIVE Urine Methamphetamines Screen POSITIVE H NEGATIVE Urine Benzodiazepines Screen POSITIVE H NEGATIVE Urine Cocaine Screen NEGATIVE NEGATIVE Urine Cannabinoids Screen POSITIVE H NEGATIVE My Orders Orders - LAYLA STEVENSON MD Ekg Tracing (08/20/22 14:59) Cbc With Automated Diff (08/20/22 15:11) Magnesium (08/20/22 15:11) Chest 1 View, Ap/Pa Only (08/20/22 15:11) Comprehensive Metabolic Panel (08/20/22 15:11) Myoglobin Serum (08/20/22 15:11) Protime With Inr (08/20/22 15:11) Partial Thromboplastin Time (08/20/22 15:11) O2 (08/20/22 15:11) Monitor-Rhythm Ecg Trace Only (08/20/22 15:11) Ed Iv/Invasive Line Start (08/20/22 15:11) Troponin I [place] (08/20/22 15:11) Ct Head/Cervical Spine Wo (08/20/22 15:23) Shoulder, Left, 3 Views (08/20/22 15:23) Acetaminophen (08/20/22 15:23) Alcohol (08/20/22 15:23) Fibrin Degradation Products (08/20/22 15:23) Drug Screen Stat (Urine) (08/20/22 15:23) Salicylate (08/20/22 15:23) Ct Angio Chest W (R/O Pe) (08/20/22 17:00) Iohexol Injection (Omnipaque 350 Mg/Ml 1 (08/20/22 17:15) Received Contrast (Hold Metformin- Contr (08/20/22 17:15) Ns (Ivpb) (Sodium Chloride 0.9% Ivpb Bag (08/20/22 17:15) Ketorolac Injection (Toradol Injection) (08/20/22 18:00) Medications Given in ED Vital Signs/I&O 08/20/22 08/20/22 15:00 18:17 Temp 37.0 37.0 Pulse 114 90 Resp 23 18 B/P (MAP) 108/78 (88) 113/85 Pulse Ox 98 99 O2 Delivery Room Air Room Air Blood Pressure Mean: 88 Progress Progress Note : Progress Note Patient was interviewed and examined. EKG demonstrated no ischemic changes. Labs were obtained, reviewed, and interpreted by me. CBC, CMP, troponin, and magnesium were all unremarkable. D-dimer was elevated. CT angiogram was obtained which revealed no pulmonary embolus. CT of the head and cervical spine demonstrated no injuries. Radiologist's reports were reviewed. Toxicology screen was positive for amphetamine, methamphetamine, marijuana, and benzodiazepines. Left shoulder x-ray was viewed and interpreted by me as unremarkable. Radiologist report was reviewed and noted no fractures or dislocations. CTA angiogram of the chest did reveal an incidental finding of abnormally large axillary lymph node. I stressed the importance of follow-up with a primary care provider for further evaluation and monitoring of this lymph node. Patient was ultimately discharged in stable condition. See discharge instructions for further discussion. Initial ECG Impression Date: Aug 20, 2022 Initial ECG Impression Time: 15:04 Initial ECG Rate: 105 Initial ECG Rhythm: S.Tach Comment Sinus tachycardia with no ST elevation or depression. No abnormal intervals or axis deviation. Diagnostic Imaging Diagonstic Imaging: CT Plain Films/CT/US/NM/MRI: c-spine, head Comments NAME: BRENNA BARRERA MED REC#: [id number] PT STATUS: REG ER : 1975 PHYSICIAN: LAYLA STEVENSON MD ADMIT DATE: 08/20/22/ER Signed Date of Exam:08/20/22 CT HEAD/CERVICAL SPINE WO PROCEDURE: CT head and CT cervical spine without contrast. TECHNIQUE: Multiple contiguous axial images were obtained through the brain and cervical spine without the use of intravenous contrast. Sagittal and coronal reformations through the cervical spine were then performed. Auto Exposure Controls were utilized during the CT exam to meet ALARA standards for radiation dose reduction. INDICATION: Head and neck pain after injury. COMPARISON: None. DISCUSSION: Head: No acute intracranial hemorrhage, mass, midline shift or hydrocephalus. The ventricles and sulci are normal size and configuration for age. Mucosal thickening noted throughout the majority of the left maxillary sinus and to a lesser degree the ethmoid air cells. Right conchal bullosa noted. The orbits, mastoid air cells, and calvarium are unremarkable. Cervical spine: Emphysematous changes noted within the lung apices. Advanced degenerative disc disease at C5-C6. Mild straightening of the normal cervical lordosis. Facet joints are maintained. No fracture or subluxation identified. IMPRESSION: 1. No acute intracranial abnormality identified. 2. Degenerative disease noted within the cervical spine. No acute abnormality. Dictated by: Dictated on workstation # [id number] Dict: 08/20/22 1616 Trans: 08/20/22 1701 [facility] [id number] Interpreted by: TRAVIS NICE MD Electronically signed by: TRAVIS NICE MD 08/20/22 1701 Diagonstic Imaging: CT Plain Films/CT/US/NM/MRI: chest Comments NAME: BRENNA BARRERA [facility] REC#: [id number] PT STATUS: REG ER : 1975 PHYSICIAN: LAYLA STEVENSON MD ADMIT DATE: 08/20/22/ER Signed Date of Exam:08/20/22 CT ANGIO CHEST W (R/O PE) Exam: CT angiography chest with intravenous contrast. Date: August 20, 2022. Indication: 46-year-old male, chest pain. Comparison: Chest radiograph August 20, 2022. Technique: Axial CT angiogram images of the chest were obtained with intravenous contrast. Coronal and sagittal as well as 3-dimensional reformats were obtained and provided. All CT scans use one or more of the following dose optimizing techniques: automated exposure control, MA and/or KvP adjustment based on patient size and exam type or iterative reconstruction. . There are findings of upper lobe predominant paraseptal emphysema. There is mild dependent atelectasis in the lungs. There is no identified pulmonary nodule or lung mass. There is no otherwise identified focal airspace consolidation. There is no pneumothorax. There is no pleural effusion. The central airways are patent. There is no identified pulmonary embolus. The main pulmonary diameter is within normal limits. The heart is not enlarged. There is no identified pericardial effusion. There is a bovine aortic arch. There is no identified abnormally enlarged mediastinal or hilar lymph node meeting CT size criteria for adenopathy. There is a left axillary lymph node measuring 1.7 cm in short axis on axial image 60. There is bilateral gynecomastia. There is a low-attenuation right renal lesion on axial image 178 which measures 2.0 cm in size. Internal attenuation is diagnostic for a benign cyst. The additional evaluation of the imaged portions of the upper abdomen is unremarkable. There are prominent left acromioclavicular degenerative changes. Impression: 1. No identified pulmonary embolus or other acute cardiopulmonary abnormality. 2. Abnormally enlarged left axillary lymph node measuring 1.7 cm in short axis. Correlation for causative etiology and workup for definitive diagnosis is recommended. 3. Advanced left acromioclavicular degenerative changes for patient age. Dictated by: Dictated on workstation # [id number] Dict: 08/20/22 1724 Trans: 08/20/22 173 CV [id number] Interpreted by: JUSTIN SUMNER MD Electronically signed by: JUSTIN SUMNER MD 08/20/22 173 Diagonstic Imaging: Xray Plain Films/CT/US/NM/MRI: other (left shoulder) Comments NAME: BRENNA BARRERA MED REC#: [id number] PT STATUS: REG ER : 1975 PHYSICIAN: LAYLA STEVENSON MD ADMIT DATE: 08/20/22/ER Signed Date of Exam:08/20/22 SHOULDER, LEFT, 3 VIEWS INDICATION: Left shoulder pain. COMPARISON: None. DISCUSSION: Three views of left shoulder were obtained. No significant degenerative disease. No fracture or dislocation. Alignment is anatomic. Soft tissues are unremarkable. IMPRESSION: 1. Negative left shoulder. Dictated by: Dictated on workstation # [id number] Dict: 08/20/22 1621 Trans: 08/20/22 170 CV [id number] Interpreted by: TRAVIS NICE MD Electronically signed by: TRAVIS NICE MD 08/20/221700 Diagonstic Imaging: Xray Plain Films/CT/US/NM/MRI: chest Comments NAME: BRENNA BARRERA MED REC#: [id number] PT STATUS: REG ER : 1975 PHYSICIAN: LAYLA STEVENSON MD ADMIT DATE: 08/20/22/ER Signed Date of Exam:08/20/22 CHEST 1 VIEW, AP/PA ONLY INDICATION: Chest pain. COMPARISON: None. DISCUSSION: Single portable upright view of the chest was obtained. Normal heart size. No consolidation, pleural fluid, or pneumothorax. No osseous abnormality. IMPRESSION: 1. Negative chest. Dictated by: Dictated on workstation # [id number] Dict: 08/20/22 1621 Trans: 08/20/22 170 CV [id number] Interpreted by: TRAVIS NICE MD Electronically signed by: TRAVIS NICE MD 08/20/221700 Departure Impression Primary Impression: Atypical chest pain Additional Impressions: Syncope Qualified Codes: R55 - Syncope and collapse Injury of left shoulder Qualified Codes: S49.92XA - Unspecified injury of left shoulder and upper arm, initial encounter Polysubstance abuse Enlarged lymph node Enlarged lymph nodes in armpit Disposition: 01 HOME, SELF-CARE Condition: Stable Departure-Patient Inst. Decision time for Depature: 17:51 Referrals: NO,LOCAL PHYSICIAN (PCP/Family) Primary Care Physician Patient Instructions: Chest Pain, LYMPH NODE SWELLING Add. Discharge Instructions: For your pain you may take ibuprofen up to 600 mg every 6 hours as needed and/or Tylenol (acetaminophen) up to 1000 mg every 6 hours as needed. Refrain from using illicit substances including methamphetamine, marijuana, etc. Seek assistance from a substance abuse treatment program. Local programs that are available include [facility], , and [facility] at [phone]. You have an enlarged lymph node in your left armpit region. It is large enough that it needs further work-up and evaluation. You need to establish with a primary care provider as soon as possible and have this evaluated further. I recommend establishing at the [facility] where they have more comprehensive resources that could fit your needs. Your left shoulder showed no evidence of bone injuries on the x-rays. However, you may have injuries to the rotator cuff or other soft tissues. Icing and 20- minute intervals may help with pain and swelling. You may use Tylenol and ibuprofen. You may use the sling for comfort but avoid keeping the arm immobile for too long as this may cause significant stiffness. If symptoms do not improve rapidly, discussed with your new primary care provider as further work- up may be beneficial. Drink plenty of clear liquids to stay well-hydrated. Return to the emergency room if you have worsening symptoms despite following these instructions or if you have repeated episodes of chest pain, passing out, etc. All discharge instructions reviewed with patient and/or family. Voiced understanding. LAYLA STEVENSON MD Aug 20, 2022 16:01
[2022-08-20 16:13] LABS: ALBUMIN 4.2 GM/DL (3.2-4.5); CHLORIDE 107 MMOL/L (98-107); POTASSIUM 4.2 MMOL/L (3.6-5.0); SODIUM 141 MMOL/L (135-145)
[2022-08-20 16:15] LABS: CALCIUM 9.7 MG/DL (8.5-10.1)
[2022-08-20 16:16] LABS: GLUCOSE 85 MG/DL (70-105)
[2022-08-20 16:17] LABS: CARBON DIOXIDE 24 MMOL/L (21-32)
[2022-08-20 16:18] LABS: BILIRUBIN,TOTAL 0.3 MG/DL (0.1-1.0)
[2022-08-20 16:20] LABS: ALKALINE PHOSPHATASE 89 U/L (40-136); CREATININE SERUM 1.06 MG/DL (0.60-1.30); GFR ESTIMATED 88
[2022-08-20 16:21] LABS: BUN/CREATININE RATIO 12
[2022-08-20 16:22] LABS: ACETAMINOPHEN < 10 UG/ML (10-30); SALICYLATE < 5.0 MG/DL (5.0-20.0)
--- NOTE | 2022-08-20 16:22 | Diagnostic Imaging Report ---
PROCEDURE: CT head and CT cervical spine without contrast. TECHNIQUE: Multiple contiguous axial images were obtained through the brain and cervical spine without the use of intravenous contrast. Sagittal and coronal reformations through the cervical spine were then performed. Auto Exposure Controls were utilized during the CT exam to meet ALARA standards for radiation dose reduction. INDICATION: Head and neck pain after injury. COMPARISON: None. DISCUSSION: Head: No acute intracranial hemorrhage, mass, midline shift or hydrocephalus. The ventricles and sulci are normal size and configuration for age. Mucosal thickening noted throughout the majority of the left maxillary sinus and to a lesser degree the ethmoid air cells. Right conchal bullosa noted. The orbits, mastoid air cells, and calvarium are unremarkable. Cervical spine: Emphysematous changes noted within the lung apices. Advanced degenerative disc disease at C5-C6. Mild straightening of the normal cervical lordosis. Facet joints are maintained. No fracture or subluxation identified. IMPRESSION: 1. No acute intracranial abnormality identified. 2. Degenerative disease noted within the cervical spine. No acute abnormality. Dictated by: Dictated on workstation # [id number]
[2022-08-20 16:23] LABS: ALANINE AMINOTRANSFERASE 24 U/L (0-55); MAGNESIUM 2.2 MG/DL (1.6-2.4)
--- NOTE | 2022-08-20 16:24 | Diagnostic Imaging Report ---
INDICATION: Chest pain. COMPARISON: None. DISCUSSION: Single portable upright view of the chest was obtained. Normal heart size. No consolidation, pleural fluid, or pneumothorax. No osseous abnormality. IMPRESSION: 1. Negative chest. Dictated by: Dictated on workstation # [id number]
--- NOTE | 2022-08-20 16:24 | Diagnostic Imaging Report ---
INDICATION: Left shoulder pain. COMPARISON: None. DISCUSSION: Three views of left shoulder were obtained. No significant degenerative disease. No fracture or dislocation. Alignment is anatomic. Soft tissues are unremarkable. IMPRESSION: 1. Negative left shoulder. Dictated by: Dictated on workstation # [id number]
[2022-08-20 16:27] LABS: PROTHROMBIN TIME PATIENT 13.4 SEC (12.2-14.7)
[2022-08-20 16:30] LABS: FIBRIN DEGRADATION PRODUCTS 1.63 UG/ML (0.00-0.49)
[2022-08-20 17:03] LABS: AMPHETAMINE SCREEN, URINE POSITIVE (NEGATIVE); BARBITURATE SCREEN URINE NEGATIVE (NEGATIVE); BENZODIAZEPINES SCREEN URINE POSITIVE (NEGATIVE); CANNABINOID SCREEN, URINE POSITIVE (NEGATIVE); COCAINE SCREEN URINE NEGATIVE (NEGATIVE); METHADONE STAT NEGATIVE (NEGATIVE); OPIATE SCREEN URINE NEGATIVE (NEGATIVE); OXYCODONE STAT NEGATIVE (NEGATIVE); PROPOXYPHENE STAT NEGATIVE (NEGATIVE); TRICYCLIC ANTIDEPRESSANTS SCRE NEGATIVE (NEGATIVE)
[2022-08-20] MEDS ORDERED: IOHEXOL 350 MG/ML 100 ML (OMNIPAQUE 350) VIAL IV ONE (17:15)
[2022-08-20] MEDS ORDERED: HOLD METFORMIN - RECEIVED CONTRAST 20 ML VIAL IV SCH (17:15)
[2022-08-20] MEDS ORDERED: NS 100 ML (IVPB) BAG IV ONE (17:15)
--- NOTE | 2022-08-20 17:32 | Diagnostic Imaging Report ---
Exam: CT angiography chest with intravenous contrast. Date: August 20, 2022. Indication: 46-year-old male, chest pain. Comparison: Chest radiograph August 20, 2022. Technique: Axial CT angiogram images of the chest were obtained with intravenous contrast. Coronal and sagittal as well as 3-dimensional reformats were obtained and provided. All CT scans use one or more of the following dose optimizing techniques: automated exposure control, MA and/or KvP adjustment based on patient size and exam type or iterative reconstruction. . There are findings of upper lobe predominant paraseptal emphysema. There is mild dependent atelectasis in the lungs. There is no identified pulmonary nodule or lung mass. There is no otherwise identified focal airspace consolidation. There is no pneumothorax. There is no pleural effusion. The central airways are patent. There is no identified pulmonary embolus. The main pulmonary diameter is within normal limits. The heart is not enlarged. There is no identified pericardial effusion. There is a bovine aortic arch. There is no identified abnormally enlarged mediastinal or hilar lymph node meeting CT size criteria for adenopathy. There is a left axillary lymph node measuring 1.7 cm in short axis on axial image 60. There is bilateral gynecomastia. There is a low-attenuation right renal lesion on axial image 178 which measures 2.0 cm in size. Internal attenuation is diagnostic for a benign cyst. The additional evaluation of the imaged portions of the upper abdomen is unremarkable. There are prominent left acromioclavicular degenerative changes. Impression: 1. No identified pulmonary embolus or other acute cardiopulmonary abnormality. 2. Abnormally enlarged left axillary lymph node measuring 1.7 cm in short axis. Correlation for causative etiology and workup for definitive diagnosis is recommended. 3. Advanced left acromioclavicular degenerative changes for patient age. Dictated by: Dictated on workstation # [id number]
[2022-08-20] MEDS ORDERED: KETOROLAC 30 MG/ML VIAL IVP ONE (18:00)
[2022-08-20 18:17] VITALS: BP 113/85
== END 2022-08-20 18:17 | disposition home or self-care (01) ==
LOC: EDUNIT# 14:58 → ER 15:00
DX: S00.83XA Contusion of other part of head, initial encounter (principal); S49.92XA Unspecified injury of left shoulder and upper arm, initial encounter; R07.89 Other chest pain; R79.1 Abnormal coagulation profile; R55 Syncope and collapse; F19.10 Other psychoactive substance abuse, uncomplicated; R59.0 Localized enlarged lymph nodes; F17.290 Nicotine dependence, other tobacco product, uncomplicated; W18.30XA Fall on same level, unspecified, initial encounter; W22.8XXA Striking against or struck by other objects, initial encounter; Y93.01 Activity, walking, marching and hiking; Y92.096 Garden or yard of other non-institutional residence as the place of occurrence of the external cause
CPT/HCPCS: 70450; 71045; 71275; 72125; 73030; 80053; 80306; 83735; 83874; 84484; 85025; 85379; 85610; 85730; 93041; 99284; A4565; G0480 ×3; 36415; 80320; 80329; 93005